=== PATIENT | female | born 1985 | race Caucasian/White ===

== ENCOUNTER 2016-08-05 13:04 | Emergency (ER) | payer SELFPAY ==
--- NOTE | ~2016-08-05 | EKG ---
PATIENT: MOOKIE HARVEY UNIT #: [id number] Ventricular Rate: 76 BPM Atrial Rate: 76 BPM P-R Interval: 148 ms QRS Duration: 86 ms Q-T Interval: 392 ms QTC Calculation(Bezet): 441 ms P Honaker: 41 degrees Calculated R Honaker: 90 degrees Calculated T Honaker: 42 degrees Diagnosis Line: Normal sinus rhythm Diagnosis Line: Rightward axis Diagnosis Line: Borderline ECG Diagnosis Line: Diagnosis Line: Confirmed by DASHA MULLEN MD ([id number]) on 08/05/2016 Diagnosis Line: 4:54:11 PM INTERPRETING MD: PAZ LEMSU
[~2016-08-05 13:04] MED LIST: AUGMENTIN PO; BENTYL20 M1 PO; CELEXA20 MG PO; HYDROCODON-ACE1 EACH PO; K-DUR20 ME1 PO; MEDROL DOSEPAK4 MG PO; PHENERGAN DM PO; PHENERGAN DM1 ML PO; PRENATAL1 TA1 PO; TYLENOL #3 PO; VIBRAMYCIN100 M1 PO; VICODIN 5/1 TAB 5/50 PO; VICODIN 5/500 T1 TAB PO; ZITHROMAX PO; ZOFRANODT PO
[2016-08-05 14:25] LABS: BASOPHIL% 0.3 % (0-2.5); EOSINOPHIL# 0.2 X10e3 (0-0.7); EOSINOPHIL% 2.6 % (0.0-7.0); HEMATOCRIT 43.7 % (35.0-45.0); HEMOGLOBIN 14.5 gm/dL (12.0-16.0); LYMPHOCYTE# 2.1 X10e3 (1.0-3.5); LYMPHOCYTE% 25.7 % (17.0-45.0); MEAN CORPUSCULAR HEMOGLOBIN 29.8 PG (28-34); MEAN CORPUSCULAR HGB CONC 33.1 g/dL (30-36); MEAN PLATELET VOLUME 8.9 FL (6.5-11.5); MONOCYTE# 0.4 X10e3 (0-1.0); MONOCYTE% 4.9 % (3.0-12.0); NEUTROPHIL# 5.3 X10e3 (1.5-7.1); NEUTROPHIL% 66.5 % (40-75); PLATELET COUNT 206 X10e3 (140-420); RED BLOOD COUNT 4.85 X10e (3.90-5.30); RED CELL DISTRIBUTION WIDTH 13.6 % (11.0-15.5)
[2016-08-05 14:33] LABS: DIFF IND NO
[2016-08-05 14:37] LABS: POC - CKMB <1.0 ng/mL (0.0-7.9); POC - TROPONIN <0.05 ng/mL (<=0.05)
[2016-08-05 14:54] LABS: ALBUMIN SERUM 4.2 g/dL (3.5-5.0); ALKALINE PHOSPHATASE 80 U/L (32-92); ALT (SGPT) 85 U/L (10-40); AST (SGOT) 51 U/L (10-42); BILIRUBIN,TOTAL 0.5 mg/dL (0.2-2.0); BLOOD UREA NITROGEN 9 mg/dL (9-23); BUN/CREATININE RATIO 11.25; CALCIUM SERUM 8.9 mg/dL (8.4-10.2); CARBON DIOXIDE 24 mmol/L (22-31); CHLORIDE 107 mmol/L (100-111); CREATININE SERUM 0.8 mg/dL (0.6-1.4); GLOM FILT RATE Estimated 97.6 mL/min (>60); GLUCOSE FASTING 90 mg/dL (70-110); POTASSIUM 3.8 mmol/L (3.5-5.1); SODIUM 138 mmol/L (135-145)
[2016-08-05 15:00] LABS: BILIRUBIN, DIRECT <0.1 mg/dL (0.0-0.2); BILIRUBIN,INDIRECT 0.4 mg/dL (0.0-0.9)
[2016-08-05 16:37] LABS: POC - CKMB <1.0 ng/mL (0.0-7.9); POC - TROPONIN <0.05 ng/mL (<=0.05)
== END 2016-08-05 16:15 | disposition left against medical advice (07) ==
LOC: CED 13:04
DX: Z53.1 Procedure and treatment not carried out because of patient's decision for reasons of belief and group pressure (principal)
CPT/HCPCS: 80048; 80076; 82553; 84484; 85025; 93005